=== PATIENT | female | born 1930 | race Asian ===

== ENCOUNTER → 2017-07-22 | Outpatient (CLI) | payer OTHER ==
[~2017-07-22] VITALS: Ht 149.9 cm; Wt 47.7 kg
[~2017-07-22] MED LIST: AZELASTINE HCL6 ML OPHTHALMIC; AZELASTINE137 MCG/0. NASAL; BETAMETHASONE D15 G1 TOP; CALCIUM 600 +1 EAC1 PO; CENTRUM SILVER1 EAC4 PO; FISH OIL 1,001000 M2 PO; FLONASE 0.05%50 MCG NASAL; FOSAMAX 70 MG T70 MG PO; HYDROCHLOROTHIA25 M2 PO; NEURONTIN300 MG PO; NORVASC5 MG PO; OMEPRAZOLE40 MG PO; PROBIOTIC1 EAC1 PO; SINGULAIR 10 MG10 M1 PO; VITAMIN B122500 MC1 PO; XALATAN2.5 ML OPHTHALMIC
[2017-07-22 14:26] VITALS: BP 138/70
[2017-07-22 16:08] LABS: ABSOLUTE NEUTROPHILS 2.8 thou/uL (1.4-8.2); BASOPHILS 0.5 % (0.0-2.0); EOSINOPHILS 5.1 % (0.0-3.0); HEMOGLOBIN 12.4 gm/dL (12.0-15.0); LYMPHOCYTES 38.6 % (24.0-44.0); MCH 32.6 pg (26.0-34.0); MCHC 34.3 g/dL (28.0-37.0); MCV 94.8 fL (80.0-100.0); MONOCYTES 5.5 % (1.0-8.0); PLATELET COUNT 250 thou/uL (150-400); POLYS 50.3 % (36.0-66.0); RDW 14.9 % (10.5-14.5); WBC 5.6 thou/uL (4.0-11.0)
[2017-07-22 16:31] LABS: ALBUMIN 3.5 g/dL (3.4-5.0); ANION GAP 5 mmol/L (7-16); BUN 11 mg/dL (7-18); CALCIUM 9.1 mg/dL (8.5-10.1); CHLORIDE 100 mmol/L (98-107); CHOLESTEROL 226 mg/dL (<200); CO2 31 mmol/L (21-32); CREATININE 0.7 mg/dL (0.6-1.0); GLUCOSE 102 mg/dL (74-106); HDL CHOLESTEROL 69 mg/dL (>40); LDL CHOLESTEROL 138 mg/dL (<100); POTASSIUM 3.3 mmol/L (3.5-5.1); SGOT 21 U/L (15-37); SGPT 19 U/L (30-65); SODIUM 136 mmol/L (136-145); TC:HDL 3.3 Ratio (Not establshd); TOTAL BILIRUBIN 0.3 mg/dL (<0.1-1.0); TOTAL PROTEIN 7.6 g/dL (6.4-8.2); TRIGLYCERIDE 97 mg/dL (<150); VLDL 19 mg/dL (<40)
== END ==
LOC: SEN 09:25
PROVIDERS: Nurse Practitioner Family
DX: R00.2 Palpitations (principal); R79.89 Other specified abnormal findings of blood chemistry; Z85.3 Personal history of malignant neoplasm of breast

== ENCOUNTER → 2017-08-05 | Outpatient (CLI) | payer OTHER ==
[2017-08-05 13:50] VITALS: BP 115/64
== END ==
LOC: SEN 10:13
DX: E78.5 Hyperlipidemia, unspecified (principal); E87.6 Hypokalemia; M54.2 Cervicalgia

== ENCOUNTER → 2017-08-10 | Outpatient (CLI) | payer OTHER ==
--- NOTE | ~2017-08-10 | 2DMMODE ---
[facility] [place] [place] [address] 2 D/M-MODE ECHOCARDIOGRAM Name: TOLU SHEPARD Room #: REG [facility]#: [id number] Admission: 08/10/17 Attend Phys: Obi Edward, Discharge: Date of : [birth year] Date of Service: 08/10/17 1648 Report #: [id number] THIS REPORT FOR: //name// APPROVED REPORT Study performed: 08/10/2017 13:57:17 EXAM: Comprehensive 2D, Doppler, and color-flow Echocardiogram Patient Location: Out-Patient Status: routine BSA: 1.38 HR: 69 bpm BP: 133/83 mmHg Rhythm: NSR Other Information Study Quality: Good Indications Palpitations. 2D Dimensions RVDd: 28.72 mm LVEF(%): 86.01 (>50%) IVSd: 10.32 (7-11mm) LVOT Diam: 20.22 (18-24mm) LVDd: 39.55 mm PWd: 6.50 (7-11mm) Ascending Ao: 31.23 (22-36mm) LVDs: 17.87 (25-40mm) Aortic Root: 32.16 mm Sarkar's LVEF: 86.01 % Volumes Left Atrial Volume (Systole) Single Plane 4CH: 20.82 mL Single Plane 2CH: 16.30 mL LA ESV Index: 15.00 mL/m2 Aortic Valve AoV Peak Hugo.: 1.02 m/s AO Peak Gr.: 4.13 mmHg LVOT Max P.24 mmHg LVOT Max V: 0.90 m/s JUAN Vmax: 2.84 cm2 Mitral Valve E/A Ratio: 0.8 MV Decel. Time: 271.40 ms [facility] [place] [place] [address] 2 D/M-MODE ECHOCARDIOGRAM Name: TOLU SHEPARD Room #: [facility]#: [id number] Admission: 08/10/17 Attend Phys: Obi Edward, Discharge: Date of : [birth year] Date of Service: 08/10/17 1648 Report #: [id number] MV E Max Hugo.: 0.68 m/s MV A Hguo.: 0.81 m/s MV PHT: 78.70 ms IVRT: 62.28 ms Pulmonary Valve PV Peak Hugo.: 0.88 m/s PV Peak Gr.: 3.09 mmHg Pulmonary Vein P Vein S: 0.95 m/s P Vein A: 0.39 m/s P Vein D: 0.77 m/s P Vein A Dur.: 93.4 msec P Vein S/D Ratio: 1.23 Tricuspid Valve TR Peak Hugo.: 3.29 m/s RAP Estimate: 5.00 mmHg TR Peak Gr.: 43.37 mmHg PA Pressure: 48.00 mmHg Left Ventricle The left ventricle is normal size. There is normal LV segmental wall motion. There is normal left ventricular wall thickness. Left ventricular systolic function is normal. LVEF is 55-60%. Mild diastolic dysfunction is present (impaired relaxation pattern). Right Ventricle The right ventricle is normal size. The right ventricular systolic function is normal. Atria The left atrium size is normal. The right atrium size is normal. Aortic Valve Aortic valve is trileaflet. No aortic regurgitation. There is no aortic valvular stenosis. Mitral Valve The mitral valve is normal in structure. Trace to mild mitral regurgitation. Tricuspid Valve The tricuspid valve is normal in structure. Moderate tricuspid regurgitation. Estimated PAP 50mmHg. Pulmonic Valve [address] [address] 2 D/M-MODE ECHOCARDIOGRAM Name: TOLU SHEPARD Room #: REG [facility]#: [id number] Admission: 08/10/17 Attend Phys: Obi Edward, Discharge: Date of : [birth year] Date of Service: 08/10/17 1648 Report #: [id number] The pulmonary valve is normal in structure. Mild pulmonic regurgitation. Great Vessels The aortic root is normal in size. The ascending aorta is normal in size. IVC is normal in size and collapses >50% with inspiration. Pericardium There is no pericardial effusion. <Conclusion> Left ventricular systolic function is normal. There is normal LV segmental wall motion. LVEF 55-60%. Mild diastolic dysfunction Aortic valve is trileaflet. No aortic regurgitation or stenosis. The mitral valve is normal in structure. Trace to mild mitral regurgitation. Moderate tricuspid regurgitation. Estimated pulmonary artery pressure of 50mmHg. There is no pericardial effusion. <ELECTRONICALLY SIGNED> By: Fernie Moss MD, FACC 08/10/[id number] Fernie Moss MD, FACC /INF
== END ==
LOC: CV 11:29
DX: I08.1 Rheumatic disorders of both mitral and tricuspid valves (principal)

== ENCOUNTER → 2017-08-19 | Outpatient (CLI) | payer OTHER ==
[2017-08-19 15:00] VITALS: BP 152/72
== END ==
LOC: SEN 08:48
DX: J01.00 Acute maxillary sinusitis, unspecified (principal)

== ENCOUNTER → 2018-04-21 | Outpatient (CLI) | payer OTHER ==
[2018-04-21 16:53] LABS: ABSOLUTE NEUTROPHILS 4.4 thou/uL (1.4-8.2); BASOPHILS 0.7 % (0.0-2.0); EOSINOPHILS 3.4 % (0.0-3.0); HEMATOCRIT 36.7 % (37.0-47.0); HEMOGLOBIN 12.7 gm/dL (12.0-15.0); LYMPHOCYTES 27.1 % (24.0-44.0); MCH 32.7 pg (26.0-34.0); MCHC 34.7 g/dL (28.0-37.0); MCV 94.1 fL (80.0-100.0); PLATELET COUNT 312 thou/uL (150-400); POLYS 62.8 % (36.0-66.0); RDW 14.4 % (10.5-14.5)
[2018-04-21 16:56] LABS: ALBUMIN 3.5 g/dL (3.4-5.0); CALCIUM 9.3 mg/dL (8.5-10.1); CREATININE 0.8 mg/dL (0.6-1.0); POTASSIUM 3.4 mmol/L (3.5-5.1); TOTAL BILIRUBIN 0.5 mg/dL (<0.1-1.0); TOTAL PROTEIN 8.5 g/dL (6.4-8.2)
== END ==
LOC: SEN 15:26
PROVIDERS: Nurse Practitioner Family
DX: J01.00 Acute maxillary sinusitis, unspecified (principal); E03.9 Hypothyroidism, unspecified; E78.5 Hyperlipidemia, unspecified; E55.9 Vitamin D deficiency, unspecified